=== PATIENT | male | born 1950 | race African-American/Black ===

== ENCOUNTER 2019-06-18 19:34 | Emergency (ER) | payer MEDICARE, OTHER ==
[~2019-06-18 19:34] MED LIST: Iopamidol 370 76% 100 ML VIAL ONE
[2019-06-18 19:51] LABS: #Basophils 0.1 thou/uL (0.0-0.2); #Eosinphils 0.1 thou/uL (0.0-0.7); #Monocytes 0.6 thou/uL (0.11-0.59); #Neutrophils 4.3 thou/uL (1.40-6.50); %Basophils 1.4 % (0.0-1.0); %Eosinophils 1.3 % (0.0-10.0); %Lymphocytes 28.7 % (21.0-51.0); %Monocytes 8.7 % (0.0-10.0); %Neutrophils 59.9 % (42.0-75.0); Hemoglobin 15.2 g/dL (14.0-18.0); Mean Corpuscular HGB CONC 33.8 g/dL (32.0-36.0); Mean Corpuscular Hemoglobin 32.8 pg (27.0-31.0); Mean Corpuscular Volume 96.8 fL (78.0-98.0); Mean Platelet Volume 8.4 fL (7.4-10.4); Platelet Count 266 thou/uL (130-400); RBC Distribution Width 14.9 % (11.5-14.5); Red Blood Cell (RBC) Count 4.64 mill/uL (4.70-6.10); White Blood Cell (WBC) Count 7.1 thou/uL (4.8-10.8)
[2019-06-18 20:05] LABS: ALT (SGPT) 8 U/L (8-55); AST (SGOT) 13 U/L (5-34); Alkaline Phosphatase 91 U/L (40-110); Anion Gap 17 mmol/L (10-20); BUN (Urea Nitrogen) 6 mg/dL (8.4-25.7); Bilirubin, Total 0.3 mg/dL (0.2-1.2); Calc. Creatinine Clearance 0 mL/min (70-130); Calcium 9.4 mg/dL (7.8-10.44); Carbon Dioxide 19 mmol/L (23-31); Chloride 102 mmol/L (98-107); Estimated GFR-MDRD Greater than 90; Globulin 3.7 g/dL (2.4-3.5); Glucose 102 mg/dL (80-115); Potassium 3.6 mmol/L (3.5-5.1); Protein, Total 7.7 g/dL (5.8-8.1); Sodium 134 mmol/L (136-145)
[2019-06-18 20:23] LABS: CKMB 0.7 ng/mL (0-6.6)
[2019-06-18 20:24] LABS: INR-International Normal Ratio 1.1; PTT 29.2 SEC (22.9-36.1); Prothrombin Time 13.8 SEC (12.0-14.7)
[2019-06-18] MEDS ORDERED: Aspirin Chewable 81 MG TAB ONE (20:34)
--- NOTE | 2019-06-18 21:07 | CT ---
HEAD CT WITHOUT CONTRAST: Date: 06-18-2019 Comparison: 08-13-17 History: Stroke protocol. Left sided weakness. Technique: Axial CT imaging at 5 mm intervals from vertex through the skull base without contrast. FINDINGS: There is circumferential mucosal thickening involving the maxillary sinus on the left. No displaced c alvarial fracture. No intracranial hemorrhage, midline shift, mass effect, or ventricular enlargement. There is extensive periventricular, deep, and subcortical white matter hypodensity, evidence of small vessel disease. IMPRESSION: No intracranial hemorrhage noted. Results called to Dr. Wright at 8:00 p.m. 06-18-2019. Code CR POS: [email or web address]
--- NOTE | 2019-06-18 21:24 | CT ---
CTA HEAD WITH CONTRAST: Technique: Axial tomograms were obtained with multiplanar reconstructions and 3D post processing foll owing a cerebral angio protocol. Indications: Stroke protocol. FINDINGS: The intracranial and internal carotid arteries are patent. There is atherosclerotic change in the cav ernous portions of both internal carotid arteries. I cannot exclude significant stenosis in the nitesh nous left ICA. Contrast opacification is suboptimal at this location and there is calcification limit ing detail within this artery. Supraglenoid internal carotid arteries appear patent and symmetric. Anterior cerebral arteries and mi ddle cerebral arteries are patent with no evidence of proximal stenosis or occlusion. Basilar artery is patent. Posterior cerebrals appear patent and symmetric. IMPRESSION: Atherosclerotic change seen in the cavernous portions of both internal carotid arteries. I cannot exc lude significant stenosis in the cavernous left ICA. Consider catheter angiogram to further evaluate the intracranial internal carotid arteries and cerebral arteries. CTA NECK: Indications: Stroke protocol. Technique: Multiplanar reconstruction and 3D post processing. FINDINGS: No stenosis at the origin of the arch vessels. Common carotid arteries appear patent and symmetric. The bulbs show minimal atherosclerotic change. No evidence of internal carotid artery stenosis on eit her side. The vertebral arteries appear patent and symmetric. IMPRESSION: No evidence of extracranial carotid artery stenosis. POS: AGW
== END 2019-06-18 20:55 | disposition short-term general hospital (02) ==
LOC: NAV ERS 19:35
DX: I63.9 Cerebral infarction, unspecified (principal); R47.81 Slurred speech; I10 Essential (primary) hypertension; F17.210 Nicotine dependence, cigarettes, uncomplicated; Z79.899 Other long term (current) drug therapy
CPT/HCPCS: 36416; 70450; 70498; 80053; 82550; 82553; 84484; 85025; 85610; 85730; 93005; 94760; Q9967